=== PATIENT | female | born 1995 | race Caucasian/White ===

== ENCOUNTER 2018-02-19 13:23 | Outpatient (CLI) | payer OTHER ==
[2018-02-19 13:52] LABS: MEAN CORPUSCULAR HEMOGLOBIN 28.5 pg (28.0-34.0)
[2018-02-19 13:53] LABS: BASOPHILS % 0.4 (0.0-1.5); EOSINOPHILS % 1.6 % (0.0-6.8); NEUTROPHILS # 4.2 # k/uL (1.4-7.7)
[2018-02-19 14:35] LABS: eGFR (Non-African) > 60
== END 2018-02-19 13:24 ==
LOC: RT 13:23
PROVIDERS: ATTEND Family Medicine
DX: R55 Syncope and collapse (principal)
CPT/HCPCS: 36415; 80053; 85025